=== PATIENT | male | born 2000 | race Caucasian/White ===

== ENCOUNTER 2022-05-07 21:14 | Observation (INO) | payer SELFPAY ==
[2022-05-07 21:15] VITALS: BP 131/54; PULSE 77; RESP 14; TEMP 37; O2SAT 99; BMI 24.2
[2022-05-07 21:32] LABS: Microscopic, Urine URINE MICROSCOPIC (MICROSCOPIC)
--- NOTE | 2022-05-07 21:43 | CT_ITS ---
PROCEDURE INFORMATION: Exam: CT Abdomen And Pelvis With Contrast Exam date and time: 05/07/2022 10:06 PM Age: 22 years old Clinical indication: Vomiting; Abdominal pain; Additional info: Abd pain, epigastric/ lower TECHNIQUE: Imaging protocol: Computed tomography of the abdomen and pelvis with contrast. Radiation optimization: All CT scans at this facility use at least one of these dose optimization techniques: automated exposure control; mA and/or kV adjustment per patient size (includes targeted exams where dose is matched to clinical indication); or iterative reconstruction. Contrast material: ISOVUE; Contrast volume: 75 ml; Contrast route: IV; REPORTING DATA: Count of CT and Cardiac NM exams in prior 12 months: This patient has received 0 known CTs and 0 known cardiac nuclear medicine studies in the 12 months prior to the current study. COMPARISON: No relevant prior studies available. FINDINGS: Lungs: Visualized lung bases are clear. Heart: Heart size normal. Mediastinal space: The visualized distal esophagus is largely contracted without gross abnormality. Liver: Normal contour. No mass lesions. No intrahepatic biliary ductal dilatation. Gallbladder and bile ducts: Normal. No calcified stones. No ductal dilation. Pancreas: Normal. No inflammatory changes or ductal dilation. Spleen: Normal. No splenomegaly. Adrenal glands: Normal. No adrenal mass. Kidneys and ureters: No acute abnormalities. No hydronephrosis or hydroureter. No urinary tract stones are identified. Stomach and bowel: The stomach is largely contracted. The small bowel is nondilated with no gross abnormality. Appendix: The appendix is dilated and inflamed measuring 10 mm diameter with wall thickening and mild adjacent fatty stranding consistent with acute appendicitis. Mild wall thickening in the ascending colon, possibly reactive changes near the appendicitis or related to contracted status. Mid and distal colonic segments are unremarkable. Intraperitoneal space: No free fluid or air. Vasculature: No acute process. No abdominal aortic aneurysm. Lymph nodes: No adenopathy. Urinary bladder: The urinary bladder is largely contracted without gross abnormality. Reproductive: Unremarkable as visualized. Bones/joints: No acute osseous abnormalities. 12 mm right supra-acetabular bone island with a few additional smaller bone islands in the pelvis bilaterally. Soft tissues: Unremarkable. IMPRESSION: 1. Acute appendicitis. No perforation or abscess. 2. Nearby mild wall thickening in the ascending colon probably due to contracted status or mild reactive changes due to proximity. Intrinsic colitis less likely. 3. THIS REPORT CONTAINS FINDINGS THAT MAY BE CRITICAL TO PATIENT CARE. The findings were verbally communicated via telephone conference with Jame Roach (ED) at 10:35 PM EST on 05/07/2022. The findings were acknowledged and understood.
[2022-05-07 21:45] LABS: Appearance,Urine CLEAR (Clear); Bilirubin,Urine Negative (Negative); Blood, Urine Negative (Negative); Color,Urine YELLOW (Yellow); Glucose,Urine (UA) Negative (Negative); Ketones,Urine 2+ (Negative); Leukocyte Esterase,Urine Negative (Negative); Nitrate,Urine Negative (Negative); PH,Urine 8.5 (5.0-8.5); Protein,Urine 1+ (Negative); Urobilinogen,Urine 0.2 EU/dl (0.2)
[2022-05-07 21:49] LABS: Basophils # 0.1 K/mm3 (0-0.2); Basophils % 0.4 % (0.1-2.0); Eosinophils % 0.1 % (0.1-12.0); Hematocrit 48.5 % (42.0-52.0); Hemoglobin 16.6 g/dL (14.1-18.0); Lymphocytes % 7.3 % (10-50); Mean Corpuscular HGB Conc 34.2 g/dL (31.8-35.4); Mean Corpuscular Hemoglobin 29.7 pg (27.0-31.2); Mean Platelet Volume 7.5 fl (7.4-10.4); Monocytes # 0.7 K/mm3 (0.1-1.0); Monocytes % 4.8 % (1.7-9.3); Neutrophils # 11.7 K/mm3 (1.8-7.8); Neutrophils % 87.4 % (37.0-80.0); Platelet Count 265 K/mm3 (142-424); Red Blood Count 5.57 M/mm3 (4.60-6.20); Red Cell Distribution Width 13.1 % (11.5-17.5); White Blood Count 13.4 K/mm3 (4.5-13.0)
[2022-05-07 21:50] LABS: MANUAL DIFFERENTIAL MANUAL DIFFERENTIAL (MANUAL DIFF)
[2022-05-07 21:51] LABS: Chloride 98 mmol/L (98-107); Potassium 3.9 mmoL/L (3.5-5.1); Sodium 134 mmol/L (136-145)
[2022-05-07 21:54] LABS: Alanine Aminotransferase 30 U/L (12-78); Alkaline Phosphatase 53 U/L (38-126); Amylase 106 U/L (30-110); Anion Gap 13.9 mEq/L (5-15); Aspartate Amino Transferase 36 U/L (17-59); Bilirubin,Total 0.7 mg/dl (0.2-1.3); Blood Urea Nitrogen 13 mg/dl (9-20); Calcium 9.2 mg/dl (8.4-10.2); Carbon Dioxide 26 mmol/L (22.0-30.0); Creatinine Clearance Estimated 142 mL/min (50-200); Estimated Glomerular Filt Rate 123 ml/min (>60); GFR (African American) 149 ML/MIN (>60); Glucose 132 mg/dl (74-100); Lipase 38 U/L (23-300)
[2022-05-07 21:55] LABS: Albumin Level 4.9 g/dl (3.5-5.0); Albumin/Globulin Ratio 1.6 (1.1-1.8); Total Protein,Serum 7.9 g/dl (6.3-8.2)
--- NOTE | 2022-05-07 21:59 | PC.NURSE ---
Pt gone to RAD via wheelchair
[2022-05-07 22:00] LABS: C-Reactive Protein 4.7 mg/L (0-4)
--- NOTE | 2022-05-07 22:15 | PC.NURSE ---
pt return from rad
--- NOTE | 2022-05-07 22:15 | PC.NURSE ---
Pt back from RAD
--- NOTE | 2022-05-07 22:16 | PC.NURSE ---
Rounded on patient at this time, updated pt and family on POC and advised we were waiting on CT results. PT reports his pain is better than when he arrived and had no new needs at this time.
[2022-05-07 22:22] LABS: WBC,Urine Occasional #/hpf (0-3)
[2022-05-07 22:33] VITALS: BP 111/61; PULSE 81; RESP 16; O2SAT 98
--- NOTE | 2022-05-07 22:34 | HMH.EDABDPAI ---
Discharge Plan Disposition Chief Complaint: Abdominal Pain Prescriptions Prescriptions: No Action No Known Home Medications Discharge ED Provider: Marley (ED)Jame Abdominal Pain HPI General Chief Complaint: Abdominal Pain Stated Complaint: ABD Pain Chills, Vomiting Time Seen by Provider: 05/07/22 22:34 Mode of Arrival: Ambulatory Source of Information: Patient, Relative and Medical Record Limitations: No Limitations Description of Symptoms (Recalled from ER Triage Doc. by RN): PT advises he started have epigastric/lower abd pain around noon with one episode of vomiting. The pain has progressively gotten worse as the day has went on and he describes it as a stabbing pain. Denies any pain or burning with urination. Also denies any diarrhea History of Present Illness HPI narrative: progressive abd pain today with nausea - MD complaint: abdominal pain Onset (ago): hour(s) Consistency: intermittent Location: RLQ Severity: moderate Quality: sharp Migration to: RLQ Related Data Home Medications Medication Instructions Recorded Confirmed No Known Home Medications 05/07/22 05/07/22 Allergies Allergy/AdvReac Type Severity Reaction Status Date / Time No Known Allergies Allergy Verified 05/07/22 21:40 [facility] Disclaimer: The information contained in this section may have been updated after the patient was seen, as this information can be updated by other users. Medical History (Updated 05/07/22 @ 21:42 by Sammi Leon RN) No significant past medical history No significant past medical history Family History (Updated 05/07/22 @ 21:42 by Sammi Leon RN) Other No significant family history Social History Smoking Status: Never smoker alcohol intake: never current occupational status: employed Travel in the last 8 weeks: None ROS Obtained: Yes All systems reviewed & no additional complaints except as documented Physical Exam General General appearance: alert Head Head exam: normocephalic Eye Eye exam: Present PERRL and EOMI; Absent scleral icterus ENT ENT exam: Present mucous membranes moist Neck Neck exam: Present trachea midline Respiratory Respiratory exam: Present normal lung sounds bilaterally; Absent respiratory distress Cardiovascular Cardiovascular exam: Present regular rate Abdominal Exam Abdominal exam: Present soft, tenderness, Rovsing's sign and tenderness at McBurney's Point; Absent guarding, rebound or rigidity Abdominal tenderness: Present RLQ and moderate Back Exam Back exam: Absent CVA tenderness (R) Neurological Exam Neurological exam: Present alert, oriented X3 and CN II-XII intact; Absent motor sensory deficit Psychiatric Psychiatric exam: Present normal affect Skin Skin exam: Absent rash Medical Decision Making Medical Records Medical records reviewed: Yes I reviewed the patient's medical records. Wallace Inquiry Pt receiving controlled substance: No Vital Signs: 05/07/22 21:15 Temperature 98.6 F Temperature Source Oral Pulse Rate [Right Brachial] 77 Respiratory Rate 14 Blood Pressure [Right Arm] 131/54 L Blood Pressure Mean [Right Arm] 79 Blood Pressure Source [Right Arm] Automatic Cuff Blood Pressure Position [Right Arm] Sitting 02 Sat by Pulse Oximetry 99 Oxygen Delivery Method Room Air Lab Data Lab results reviewed: Yes I reviewed the patient's lab results. Lab Results 05/07/22 21:20: Urine Color Yellow, Urine Appearance Clear, Urine pH 8.5, Ur Specific [place] 1.010, Urine Protein 1+, Urine Glucose (UA) Negative, Urine Ketones 2+, Urine Blood Negative, Urine Nitrate Negative, Urine Bilirubin Negative, Urine Urobilinogen 0.2, Ur Leukocyte Esterase Negative, Urine RBC None, Urine WBC Occasional, Ur Squamous Epith Cells None, Urine Bacteria None 05/07/22 21:33: WBC 13.4 H, RBC 5.57, Hgb 16.6, Hct 48.5, MCV 87.0, MCH 29.7, MCHC 34.2, RDW 13.1, Plt Count 265, MPV 7.5, Neut % (Auto) 87.4 H, Lymph % (Auto) 7.3 L,
--- NOTE | 2022-05-07 22:35 | PC.NURSE ---
Dr. Yarbrough paged
--- NOTE | 2022-05-07 22:37 | PC.NURSE ---
Dr. Roach speaking with Dr. Yarbrough
--- NOTE | 2022-05-07 22:41 | PC.NURSE ---
dry house attendant aware of admission
--- NOTE | 2022-05-07 22:46 | PC.NURSE ---
Pt given bag for belongings and provided with warm blankets. Covid swab obtained and sent to lab
[2022-05-07 22:48] LABS: Coronavirus 19, PCR Not Detected (NotDetected); Influenza A, PCR Not Detected (NotDetected); Influenza B, PCR Not Detected (NotDetected)
[2022-05-07 23:04] LABS: Lymphocytes % 10 % (10-50); Monocytes % 2 % (2-9); Neutrophils % 87 % (42-76); Total Cells Counted 100
[2022-05-07 23:05] LABS: Platelet Estimate Normal; RBC Morphology Normal
--- NOTE | 2022-05-07 23:08 | PC.NURSE ---
called report to Janee
[2022-05-07 23:09] VITALS: BP 100/51; PULSE 72; RESP 16; TEMP 37; O2SAT 98
[2022-05-07 23:18] VITALS: BP 103/57; PULSE 60; RESP 16; TEMP 36.4; O2SAT 98; BMI 25.9
--- NOTE | 2022-05-07 23:18 | PC.NURSE ---
PT ARRIVED TO FLOOR AT THIS TIME
[2022-05-08] VITALS (16 sets, daily range): BP systolic 94–104; BP diastolic 40–60; PULSE 52–77; RESP 16–18; TEMP 36.3–43; O2SAT 96–100; BMI 26.5
--- NOTE | 2022-05-08 07:01 | EXP.GEN.HP ---
HPI HPI HPI: This is a 22-year-old gentleman who presented overnight to the emergency department with increasing abdominal pain. He states that he feels better right now . Please see HPI forwarded from emergency department evaluation below. Forwarded from emergency department evaluation: General Chief Complaint: Abdominal Pain Stated Complaint: ABD Pain Chills, Vomiting Time Seen by Provider: 05/07/22 22:34 Mode of Arrival: Ambulatory Source of Information: Patient, Relative and Medical Record Limitations: No Limitations Description of Symptoms (Recalled from ER Triage Doc. by RN): PT advises he started have epigastric/lower abd pain around noon with one episode of vomiting. The pain has progressively gotten worse as the day has went on and he describes it as a stabbing pain. Denies any pain or burning with urination. Also denies any diarrhea History of Present Illness HPI narrative: progressive abd pain today with nausea - MD complaint: abdominal pain Onset (ago): hour(s) Consistency: intermittent Location: RLQ Severity: moderate Quality: sharp Migration to: RLQ [facility] Disclaimer: The information contained in this section may have been updated after the patient was seen, as this information can be updated by other users. Medical History No significant past medical history No significant past medical history Family History (Updated 05/08/22 @ 00:20 by Janee Crouch RN) No significant family history Lymphoma Mother Social History (Updated 05/08/22 @ 00:20 by Janee Crouch RN) Smoking Status: Never smoker alcohol intake: never current occupational status: employed Travel in the last 8 weeks: None Meds Home Medications and Allergies Home Medications Medication Instructions Recorded Confirmed Type hydrocodone 5 mg-acetaminophen 325 1 tab PO Q6H PRN post-op pain #17 05/08/22 Rx mg tablet tabs New Prescriptions to Start Prescriptions: hydrocodone-acetaminophen Catalino Yarbrough Allergies Allergy/AdvReac Type Severity Reaction Status Date / Time No Known Allergies Allergy Verified 05/07/22 21:40 Exam Data for Last 24 hours Vital signs and Labs for Last 24 Hours: Temp Pulse Resp BP Pulse Ox 97.6 F 77 16 103/50 L 99 05/08/22 04:00 05/08/22 04:00 05/08/22 04:00 05/08/22 04:00 05/08/22 04:00 Laboratory Results - last 24 hr 05/07/22 21:20: Urine Color Yellow, Urine Appearance Clear, Urine pH 8.5, Ur Specific [place] 1.010, Urine Protein 1+, Urine Glucose (UA) Negative, Urine Ketones 2+, Urine Blood Negative, Urine Nitrate Negative, Urine Bilirubin Negative, Urine Urobilinogen 0.2, Ur Leukocyte Esterase Negative, Urine RBC None, Urine WBC Occasional, Ur Squamous Epith Cells None, Urine Bacteria None 05/07/22 21:33: WBC 13.4 H, RBC 5.57, Hgb 16.6, Hct 48.5, MCV 87.0, MCH 29.7, MCHC 34.2, RDW 13.1, Plt Count 265, MPV 7.5, Neut % (Auto) 87.4 H, Lymph % (Auto) 7.3 L, [place] % (Auto) 4.8, Eos % (Auto) 0.1, Baso % (Auto) 0.4, Neut # (Auto) 11.7 H, Lymph # (Auto) 1.0, Sullivan # (Auto) 0.7, Eos # (Auto) 0.0, Baso # (Auto) 0.1, Total Counted 100, Neutrophils % (Manual) 87 H, Lymphocytes % (Manual) 10, Monocytes % (Manual) 2, Basophils % (Manual) 1.0, Platelet Estimate Normal, RBC Morphology Normal 05/07/22 21:33: Sodium 134 L, Potassium 3.9, Chloride 98, Carbon Dioxide 26, Anion Gap 13.9, BUN 13, Creatinine 0.80, Estimated Creat Clear 142, Estimated GFR 123, Est GFR ( Amer) 149, Glucose 132 H, Calcium 9.2, Total Bilirubin 0.7, AST 36, ALT 30, Alkaline Phosphatase 53, C-Reactive Protein 4.7 H, Total Protein 7.9, Albumin 4.9, Globulin 3.0, Albumin/Globulin Ratio 1.6, Amylase 106, Lipase 38 05/07/22 22:43: SARS-CoV-2 (PCR) Not detected, Influenza A Untype (PCR) Not detected, Influenza Type B (PCR) Not detected I & O for Last 24 hours: Intake & Output 05/05/22 05/06/22 05/07/22 05/08/22 11:59 11:59 11:5
--- NOTE | 2022-05-08 08:35 | ECG_ITS ---
APPROVED REPORT Exam: Resting ECG HR:54 bpm ECG Measurements Heart Rate 54 AXES OH 169 P 56 QRSd 101 QRS 79 QT 410 T 47 QTc 396 Conclusion SINUS BRADYCARDIA BORDERLINE ECG UNCONFIRMED REPORT Electronically signed by : Dillon Garner MD 05/08/2022 20:19:31
--- NOTE | 2022-05-08 09:10 | PC.NURSE ---
Patient gone to OR for surgery via bed.
--- NOTE | 2022-05-08 09:59 | EXP.ANES.CKL ---
[facility] Disclaimer: The information contained in this section may have been updated after the patient was seen, as this information can be updated by other users. Medical History No significant past medical history No significant past medical history Family History (Updated 05/08/22 @ 00:20 by Janee Crouch RN) Mother Lymphoma Other No significant family history Social History (Updated 05/08/22 @ 00:20 by Janee Crouch RN) Smoking Status: Never smoker alcohol intake: never substance use type: denies use current occupational status: employed Travel in the last 8 weeks: None [facility] Anesthesia Checklist Patient Identification Patient Identification: Arm Band and Verbal (Name & ) Structural Data Admitted From: Emergency Dept Planned Operative Procedure/s: Appendectomy Consent for Planned Operative Procedure(s) Verified: Yes Verified Documents: Surgical Consent NPO Status Verified Time NPO: 00:00 Airway Assessment C-Spine Mobility Assessed: Yes TMJ Mobility Assessed: Yes Dentition: Good Dentition Neurological Assessment Level of Consciousness: Awake, Alert and Appropriate Anesthesia Plan Anesthesia Risk discussed: Yes ASA Class: I Anesthesia Type: General
--- NOTE | 2022-05-08 11:14 | EXP.OP.NOTE ---
Date of procedure: 05/08/22 Pre-op Diagnosis:: Appendicitis Post-op Diagnosis:: Same Procedure performed:: Laparoscopic appendectomy Surgeon:: Catalino Yarbrough MD Anesthesia: GETA Estimated blood loss (mL): 15 Operative findings:: Severe appendiceal inflammation with patchy suppuration Operative note:: After informed consent was obtained the patient was taken to the operating room and placed in the supine position. General anesthesia was induced and his abdomen was prepped and draped in a sterile fashion. After infiltration local anesthetic a supraumbilical incision was made. A Veress needle was placed in position. The abdomen was insufflated. Under direct visualization a 5 mm trocar was placed in the suprapubic position and an additional 5 mm trocar was placed in the left lower quadrant. The appendix was carefully elevated. Severe inflammation with patchy suppuration was confirmed. The mesoappendix was taken with harmonic farhan. An Endopath 45 stapling device was used to transect through the appendix at its base the appendix was placed in a retrieval bag and removed through the supraumbilical trocar site. The right lower quadrant was thoroughly irrigated. No active bleeding or sign of injury was noted. No pockets of purulence were seen. Fascia at the supraumbilical trocar site was reapproximated with interrupted 0 Ethibond. All wounds were irrigated and skin was closed with 4-0 Monocryl in a mattress fashion to facilitate hemostasis. Dressings were applied and the patient was transferred to recovery in stable condition. Condition: stable Disposition: PACU Specimens:: Appendix Complications:: No immediate
--- NOTE | 2022-05-08 11:16 | EXP.DC.SUM ---
General Admission date:: 05/07/22 Discharge date: 05/08/22 HPI HPI HPI: This is a 22-year-old gentleman who presented overnight to the emergency department with increasing abdominal pain. He states that he feels better right now . Please see HPI forwarded from emergency department evaluation below. Forwarded from emergency department evaluation: General Chief Complaint: Abdominal Pain Stated Complaint: ABD Pain Chills, Vomiting Time Seen by Provider: 05/07/22 22:34 Mode of Arrival: Ambulatory Source of Information: Patient, Relative and Medical Record Limitations: No Limitations Description of Symptoms (Recalled from ER Triage Doc. by RN): PT advises he started have epigastric/lower abd pain around noon with one episode of vomiting. The pain has progressively gotten worse as the day has went on and he describes it as a stabbing pain. Denies any pain or burning with urination. Also denies any diarrhea History of Present Illness HPI narrative: progressive abd pain today with nausea - MD complaint: abdominal pain Onset (ago): hour(s) Consistency: intermittent Location: RLQ Severity: moderate Quality: sharp Migration to: RLQ Hospital Course Hospital Course Hospital Course: The patient was maintained on IV Zosyn preoperatively. He underwent laparoscopic appendectomy on the morning of discharge. Please see operative report for detail. He did have patchy suppuration; therefore, the decision was made to discharge with a short-course of Augmentin. At the time of discharge she was afebrile with stable normal vital signs and ambulating without difficulty. Exam Data for Last 24 hours Vital signs and Labs for Last 24 Hours: Temp Pulse Resp BP Pulse Ox 98.9 F 54 L 18 102/46 L 97 05/08/22 07:47 05/08/22 07:47 05/08/22 07:47 05/08/22 07:47 05/08/22 07:47 Laboratory Results - last 24 hr 05/07/22 21:20: Urine Color Yellow, Urine Appearance Clear, Urine pH 8.5, Ur Specific [place] 1.010, Urine Protein 1+, Urine Glucose (UA) Negative, Urine Ketones 2+, Urine Blood Negative, Urine Nitrate Negative, Urine Bilirubin Negative, Urine Urobilinogen 0.2, Ur Leukocyte Esterase Negative, Urine RBC None, Urine WBC Occasional, Ur Squamous Epith Cells None, Urine Bacteria None 05/07/22 21:33: WBC 13.4 H, RBC 5.57, Hgb 16.6, Hct 48.5, MCV 87.0, MCH 29.7, MCHC 34.2, RDW 13.1, Plt Count 265, MPV 7.5, Neut % (Auto) 87.4 H, Lymph % (Auto) 7.3 L, [place] % (Auto) 4.8, Eos % (Auto) 0.1, Baso % (Auto) 0.4, Neut # (Auto) 11.7 H, Lymph # (Auto) 1.0, [place] # (Auto) 0.7, Eos # (Auto) 0.0, Baso # (Auto) 0.1, Total Counted 100, Neutrophils % (Manual) 87 H, Lymphocytes % (Manual) 10, Monocytes % (Manual) 2, Basophils % (Manual) 1.0, Platelet Estimate Normal, RBC Morphology Normal 05/07/22 21:33: Sodium 134 L, Potassium 3.9, Chloride 98, Carbon Dioxide 26, Anion Gap 13.9, BUN 13, Creatinine 0.80, Estimated Creat Clear 142, Estimated GFR 123, Est GFR ( Amer) 149, Glucose 132 H, Calcium 9.2, Total Bilirubin 0.7, AST 36, ALT 30, Alkaline Phosphatase 53, C-Reactive Protein 4.7 H, Total Protein 7.9, Albumin 4.9, Globulin 3.0, Albumin/Globulin Ratio 1.6, Amylase 106, Lipase 38 05/07/22 22:43: SARS-CoV-2 (PCR) Not detected, Influenza A Untype (PCR) Not detected, Influenza Type B (PCR) Not detected I & O for Last 24 hours: Intake & Output 05/05/22 05/06/22 05/07/22 05/08/22 11:59 11:59 11:59 11:59 Intake Total 748 / 748 Balance 748 / 748 Weight 165 lb 1.984 oz Constitutional Constitutional: no acute distress *Routine HEENT Exam Head: Present normocephalic Eye: Present EOMI ENT: Present mucous membranes moist *Routine Neck Exam Neck: Present full ROM Routine Chest/Breast/Axilla Exam Chest wall: Absent tenderness *Routine Respiratory Exam Respiratory: Present normal respiratory effort; Absent respiratory distress *Routine Cardiovascular Exam Cardiovascular: Present RRR *Routine Abdominal Exam Abdominal: Present soft *Routine Rectal Exam P
--- NOTE | 2022-05-08 11:19 | EXP.ANES.I ---
[facility] Anesthesia Record Part I Anesthesia Record I Intake, IV Amount: 900 Estimated blood loss (mL): 5 Urine output (mL): 0 Blood Pressure: 96/42 SaO2: 96 Pulse Rate: 65 Respiratory Rate: 16 Temperature: 97.4 F Patient is:: Drowsy and Stable Stable to PACU at:: 11:18
--- NOTE | 2022-05-08 11:59 | PC.NURSE ---
Addendum entered by Rocio Rhodes RN 05/08/22 12:03: report and pt left in care of Isrrael-HANSA Renteria Original Note: 1146-detailed report called to HANSA Arcos 1148-pt transported to 2nd floor room 207 via hospital bed w/monica rails up and left in care of HANSA Arcos with bed locked in lowest position, vss, pt stable
--- NOTE | 2022-05-08 12:00 | PC.NURSE ---
1150 patient arrived to room form OR.
--- NOTE | 2022-05-08 12:07 | HMH.PHAINT1 ---
Pharmacy Intervention Comments: Discussed discharge medications with patient and patient's father. Both verbalized understanding and had no questions at this time.
--- NOTE | 2022-05-08 12:36 | PC.NURSE ---
Patient has 3 abdominal lap sites with telfa, secure with tegaderm, sites are CDI.
[2022-05-08 15:05] LABS: Microscopic,Cath URINE MICROSCOPIC (MICROSCOPIC)
[2022-05-08 15:12] LABS: Appearance,Urine/Cath CLEAR (Clear); Bilirubin,Cath Negative (Negative); Blood, Urine/Cath Negative (Negative); Color,Urine/Cath YELLOW (Yellow); Glucose,Urine/Cath (UA) Negative (Negative); Ketones,Urine/Cath Negative (Negative); Leukocyte Esterase,Cath Negative (Negative); Nitrate,Cath Negative (Negative); Protein,Urine/Cath TRACE (Negative); Specific Gravity, Urine/Cath 1.015 (1.005-1.030); Urobilinogen,Cath 0.2 EU/dl (0.2)
[2022-05-08 15:44] LABS: Bacteria,Urine/Cath TRACE /lpf; Mucus,Urine/Cath Trace /lpf
--- NOTE | 2022-05-09 13:39 | CARE MANAGER ---
Spoke with patient's father. He states he is doing well. They picked up medication and are aware of follow up appointment
--- NOTE | 2022-05-09 14:46 | P.PNANES_ITS ---
[facility] Anesthesia Record Part II Anesthesia Record Part II Discharge Time: 11:48 Destination: Medical Surgical Department PACU nurse assessment reviewed?: Yes Patient Condition:: Good Anesthesia Complications:: None Swallowing reflex intact?: Yes Cyanosis?: No Blood Pressure: 101/54 Pulse Rate: 66 Temperature: 97.5 F Mental Status: Alert & Oriented Pain level:: 0 Nausea and/or vomitting:: None Intake, IV Amount: 0
[2022-05-09 14:47] VITALS: BP 101/54; PULSE 66; TEMP 36.4
== END 2022-05-08 16:38 | disposition home or self-care (01) ==
LOC: ER 21:24 → 2ND 23:08
PROVIDERS: Admitting Provider Surgery; Emergency Provider Emergency Medicine; Visit Provider Surgery
PROC: 0DTJ4ZZ Resection of Appendix, Percutaneous Endoscopic Approach (ICD-10-PCS; CPT 44970; principal; 2022-05-08 12:00)
DX: K35.80 Unspecified acute appendicitis (principal); Z20.822 Contact with and (suspected) exposure to COVID-19
CPT/HCPCS: 44970; 74177; 80053; 81001; 82150; 83690; 85007; 85025; 86140; 93005; 99285; C9803; G0378; J0696; J2405; J2543; Q9967; U0003; U0005